=== PATIENT | female | born 1955 | race African-American/Black ===

== ENCOUNTER 2019-07-25 18:29 | Emergency (ER) | payer MEDICARE, MEDICAID ==
[~2019-07-25] VITALS: Ht 167.6 cm; Wt 159.1 kg
[2019-07-25 18:34] VITALS: Ht 167.6 cm; Wt 159.1 kg
[2019-07-25] MEDS ORDERED: DIABETES MED (18:35)
[2019-07-25] MEDS ORDERED: BP MED (18:36)
[2019-07-25 20:03] LABS: BASOPHILS 0.2 % (0-2); EOSINOPHILS 3.9 % (0-7); HEMATOCRIT 40.9 % (36.0-48.0); HEMOGLOBIN 12.8 g/dL (12-16); IMMATURE GRANULOCYTES 0.2 % (0-5); LYMPHOCYTES 31.4 % (15-50); MCH 27.5 pg (26.0-34.0); MCHC 31.3 g/dL (31.0-37.0); MEAN PLATELET VOLUME 11.3 fL (7.4-10.4); MONOCYTES 6.8 % (2-11); NEUTROPHILS 57.5 % (40-80); PLATELET COUNT 165 10x3/uL (130-400); RBC 4.65 10x6/uL (4.00-5.40); RDW 14.4 % (11.5-14.5); WBC 4.1 10x3/uL (4.8-10.8)
[2019-07-25 20:19] LABS: CALC OSMOLALITY 276 mosm/kg (275-300); CALCIUM 8.9 mg/dL (8.5-10.1); CARBON DIOXIDE 30.5 mmol/L (21.0-32.0); CHLORIDE - SERUM 101 mmol/L (98-107); CREATININE - SERUM 1.3 mg/dL (0.6-1.3); GLUCOSE 206 mg/dL (74-106); POTASSIUM - SERUM 3.8 mmol/L (3.5-5.1); SODIUM 134 mmol/L (136-145); UREA NITROGEN 20 mg/dL (7-18); eGFR NON AFRICAN AMERICAN 43 mL/min (90-120)
[2019-07-25 20:28] LABS: ALBUMIN 3.2 g/dL (3.4-5.0); ALKALINE PHOSPHATASE 110 U/L (30-120); ALT (SGPT) 19 U/L (10-68); AMYLASE - SERUM 57 U/L (25-115); BILIRUBIN - TOTAL 0.28 mg/dL (0.2-1.3); LIPASE 129 U/L (73-393); PROTEIN - SERUM 8.1 g/dL (6.4-8.2); TROPONIN-I < 0.017 ng/mL (0.000-0.060)
[2019-07-25 20:45] LABS: BILIRUBIN NEGATIVE (NEGATIVE); GLUCOSE 50 mg/dL (NEGATIVE); KETONE NEGATIVE (NEGATIVE); NITRITE NEGATIVE (NEGATIVE); SPECIFIC GRAVITY 1.025 (1.005-1.020); UROBILINOGEN NORMAL (NORMAL)
[2019-07-25] MEDS ORDERED: MOBIC7.5 MG PO (22:08)
[2019-07-25] MEDS ORDERED: COLACE100 MG PO (22:08)
[2019-07-25 22:20] VITALS: BP 125/84
== END 2019-07-25 22:21 | disposition home or self-care (01) ==
LOC: D.ER 18:29
PROVIDERS: Family Medicine
DX: R10.9 Unspecified abdominal pain (principal); M54.5 Low back pain; E11.9 Type 2 diabetes mellitus without complications; J44.9 Chronic obstructive pulmonary disease, unspecified; I10 Essential (primary) hypertension; Z79.84 Long term (current) use of oral hypoglycemic drugs

== ENCOUNTER → 2019-10-26 08:28 | Outpatient (CLI) | payer MEDICARE, MEDICAID ==
[2019-07-25 18:34] VITALS: BMI 56.6
[~2019-10-26 08:28] MED LIST: BP MED; COLACE100 MG PO; DIABETES MED; MOBIC7.5 MG PO
== END | disposition home or self-care (01) ==
LOC: D.LAB 08:28
PROVIDERS: ATTEND Internal Medicine Pulmonary Disease
DX: Z11.59 Encounter for screening for other viral diseases (principal)

== ENCOUNTER → 2019-10-27 09:16 | Outpatient (CLI) | payer MEDICARE, MEDICAID ==
[2019-07-25 18:34] VITALS: BMI 56.6
== END | disposition home or self-care (01) ==
LOC: D.RT 09-30 14:30
PROVIDERS: ATTEND Nurse Practitioner
DX: J44.9 Chronic obstructive pulmonary disease, unspecified (principal)